=== PATIENT | male | born 1960 | race Caucasian/White ===

== ENCOUNTER 2025-07-14 05:37 | Day surgery (SDC) | payer MEDICARE, BC ==
--- NOTE | 2025-07-07 15:16 | ELECTROCARDIOGRAPH REPORT ---
[facility] Test Date: 2025-07-07 Test Time: 15:13:53 Pat Name: ATTILA LANZA Department: [facility]-PRE-OP Patient ID: [facility]-[id number] Room: Gender: M Telephone Assembler: : 1960 Requested By: RONNY LINARES Order Number: [id number] Reading MD: Dr. THERESA Wellington Measurements Intervals [place] Rate: 70 P: 77 PA: 173 QRS: 74 QRSD: 92 T: 44 QT: 386 QTc: 417 Interpretive Statements Sinus rhythm Electronically Signed On 07-07-2025 18:20:[address] THERESA Wellington Please click the below link to view image of tracing.
[2025-07-07 15:47] LABS: MEAN PLATELET VOLUME 6.3 FL (7.4-10.4); RED CELL DISTRIBUTION WIDTH 13.3 % (11.5-14.5)
[2025-07-07 16:01] LABS: CREATININE 0.88 MG/DL (0.60-1.10); TOTAL CARBON DIOXIDE 31.0 MMOL/L (24-32); eGFR 87 ML/MIN
[2025-07-14] VITALS (12 sets, daily range): BP systolic 118–137; BP diastolic 75–89; PULSE 81–94; RESP 13–17; TEMP 98.7; O2SAT 95–100
[~2025-07-14] VITALS: Ht 180.3 cm; Wt 71.7 kg
[~2025-07-14 05:37] MED LIST: ASPI-10 PO; EPIN0.3A3 IM; FAMO-129 PO; FLUT16SP2 BOTHNARES; GLUC1TAB75 PO; MAGN400C PO; METF-900 PO; OMEG-166 PO; UPAD15TA PO; VITA1TAB97 PO
[2025-07-14] MEDS: ceFAZolin 2gm/dext,iso 50mL 50 ML IV ONE (05:54)
[2025-07-14] MEDS: ringers solution, lacted 1,000 ML IV SCH (06:03)
[2025-07-14] MEDS ORDERED: LIDOcaine 1% 30ml preserv. free vial ONE (06:46)
[2025-07-14] MEDS ORDERED: BUPIVAcaine/PF 2.5mg/ml (0.25%) 10ml vial ONE (06:46)
[2025-07-14] MEDS ORDERED: fentaNYL/PF 50MCG/1 ML 2ML syringe ONE (07:23)
[2025-07-14] MEDS ORDERED: propofol inj 20 ML IV ONE (07:23)
--- NOTE | 2025-07-14 07:28 | HISTORY AND PHYSICAL ---
History & Physical Providers to CC ~ History of Present Illness Reason for Admit\Complaint: RIGHT INGUINAL HERNIA History of Present Illness Interval history and physical exam Patient here today for elective repair of a right inguinal hernia He was seen in the office greater than 30 days ago but denies any change in his past medical history (please see previous history and physical exam for all pertinent details) He is scheduled for robotic assisted, laparoscopic right possible left inguinal hernia repair with mesh Allergies: Uncoded Allergies: FRAGRANCE (Allergy, Unknown, TIGHT THROAT, 07/13/25) Home Medications Home Medications Active Reported Epinephrine 0.3 Mg/0.3 Ml Auto.injct 1 Syr IM ONCE 1 Days Aspirin 325 Mg Tablet 1 Tab PO DAILY 30 Days Glucosamine-Chondroitin Tab (Glucosamine/Chondro Amin A) 500 Mg-400 Mg Tablet 1 Tab PO DAILY D3 + K2 Dots 1,000 Units Tab (Vitamin D3/Menaquinone 7) 25 Mcg (1000 Unit)-90 Mcg Tab.rapdis 1 Tab PO DAILY Magnesium (Magnesium Oxide) 400 Mg Magnesium Capsule 2 Cap PO DAILY Fish Oil 1,000 Mg Ec Softgel ([place]-3/Dha/Epa/Fish Oil) 300 Mg-1,000 Mg Capsule.dr 1 Cap PO DAILY Pepcid (Famotidine) 20 Mg Tablet 1 Tab PO DAILY Flonase (Fluticasone Propionate) 16 Gm Ethel.susp 2 Sprays BOTHNARES DAILY PRN Metformin ER* (Metformin HCl) 500 Mg Tab.sr.24h 2 Tab PO DAILY Rinvoq ER (Upadacitinib) 15 Mg Tab.er.24h 1 Tab PO DAILY ROS ROS Reviewed and negative with the exception of those found in the history of prese nt illness Exam General: 65-year-old gentleman in no acute distress Chest: Lungs clear to auscultation bilaterally Cardiovascular: Regular rate and rhythm without murmurs Abdomen: Soft and nondistended Right inguinal hernia Right side of abdomen marked with indelible ink Problems: (1) Right inguinal hernia Status: Chronic Assessment & Plan: The discs, benefits, and alternatives to a robotic assisted, laparoscopic right possible left inguinal hernia repair with mesh were discussed with the patient. Risks include, but are not limited to, bleeding, infection, injury to intra-abdominal structures, hernia recurrence and chronic postoperative pain. Patient verbalized understanding and wishes to proceed with surgery. We will do so today as scheduled RONNY LINARES MD Jul 14, 2025 07:28
[2025-07-14] MEDS ORDERED: dexamethasone sod phosphate 4mg/ml inj. ONE (07:42)
[2025-07-14] MEDS ORDERED: ondansetron/PF 4mg/2ml inj ONE (07:42)
[2025-07-14] MEDS ORDERED: rocuronium 10mg/ml inj IV ONE (07:42)
[2025-07-14] MEDS: LIDOcaine 1% 30ml preserv. free vial IJ ONE (07:51)
[2025-07-14] MEDS: BUPIVAcaine/PF 2.5mg/ml (0.25%) 10ml vial IJ ONE (07:52)
[2025-07-14] MEDS ORDERED: HYDROmorphone/PF 0.2 MG/ML SYRINGE IV PRN ×2 (08:05)
[2025-07-14] MEDS ORDERED: labetalol 20mg/4ml (5mg/ml) syringe IV PRN (08:05)
[2025-07-14] MEDS ORDERED: morphine 4 MG/ML inj SYRINge IV PRN (08:05)
[2025-07-14] MEDS ORDERED: hydrALAZINE 20mg/ml inj. IV PRN (08:05)
[2025-07-14] MEDS ORDERED: ringers solution, lacted 1,000 ML IV SCH (08:05)
[2025-07-14] MEDS ORDERED: ondansetron/PF 4mg/2ml inj IV PRN (08:05)
[2025-07-14] MEDS ORDERED: acetaminophen 1,000mg/100ml IV 100 ML IV PRN (08:05)
--- NOTE | 2025-07-14 09:07 | OPERATIVE REPORT ---
Operative Report Providers to CC: MADI LINARES MD ~ Date of Procedure: Jul 14, 2025 Pre-Operative Diagnosis: Right inguinal hernia Post-Operative Diagnosis SAME as PRE-Op Procedure Performed Robotic assisted, laparoscopic right inguinal hernia repair with a mesh Surgeon: Madi Linares MD FACS Administration Professional None Anesthesiologist: Indio Campos Type of Anesthesia: General Findings: Moderate-sized indirect right inguinal hernia Spermatic cord lipoma Complications None Prosthetics\Implants used: Extra-large right Dextile mesh Estimated Blood Loss: Minimal Specimen Removed: Cord lipoma excised and discarded Description of Procedure: Patient was brought to the operating room and identified by the nursing staff and the attending physician. Patient was placed supine and general anesthesia was induced. Patient's abdomen was prepped and draped in standard sterile fashion. Preoperative antibiotics were given. Supraumbilical incision was made to allow for standard [place] entry technique. Laparoscope was inserted after insufflation. Bilateral, 8.5 mm robotic trochars were placed under laparoscopic guidance following administration of local anesthetic. The da Mateusz robotic arm was docked to the patient and instruments placed intra-abdominally under laparoscopic visualization. The left hemipelvis was examined and showed no evidence of left inguinal hernia. Preperitoneal flap was created and carried down to the symphysis pubis. The retropubic space of [place] was developed and the bladder swept medially. Dissection was carried out laterally until indirect hernia sac was identified. This was moderate in size. Hernia sac was completely mobilized and reduced. There was also a moderate-sized cord lipoma that was mobilized away from the cord structures, excised and set aside. Peritoneum was completely dissected away from the cord structures The critical view of the myopectineal orifice was achieved. Dissection was carried out laterally to allow space for mesh deployment. An extra-large Dextile mesh and suture was passed intra-abdominally. Mesh was laid in the preperitoneal space covering both indirect, direct, and potential femoral and obturator hernias. Mesh laid without wrinkles or folds. 3 tacking sutures using 0 Ethibond were used to fix the mesh at the symphysis pubis, rectus abdominis, and just anterior to the anterior superior iliac spine. The peritoneal rent was then closed with running, 2/0, absorbable locking suture. [place] were retrieved. Cord lipoma was retrieved and discarded. Abdomen was deflated and secondary trochars removed. Fascia at the umbilical port site was closed with 0 Vicryl sutures. Skin incisions were closed with 4-0 Monocryl sutures in a subcuticular fashion. Sterile dressings were applied. Patient was awakened and taken to the postanesthesia care unit in stable condition. Counts repoted as correct: Yes MADI LINARES MD Jul 14, 2025 09:06
[2025-07-14] MEDS: HYDROcodone/acetaminophen 5mg/325mg tablet PO PRN (09:49)
== END 2025-07-14 10:33 | disposition home or self-care (01) ==
LOC: PAS 05:37 → EEVIPCON 07:30 → PAS 10:33
PROVIDERS: ATTEND Surgery
DX: K40.90 Unilateral inguinal hernia, without obstruction or gangrene, not specified as recurrent (principal); R94.31 Abnormal electrocardiogram [ECG] [EKG]; R73.09 Other abnormal glucose; Z79.82 Long term (current) use of aspirin; Z98.890 Other specified postprocedural states; Z82.49 Family history of ischemic heart disease and other diseases of the circulatory system; Z91.09 Other allergy status, other than to drugs and biological substances
CPT/HCPCS: 36415; 49650; 80053; 82948; 85025; 93005; A4215; A4618; C1781; J1100; J2003; J2405; J2704; J3010; J3490; J7030; J7120; Z7506; Z7508; Z7512; Z7610